=== PATIENT | male | born 1965 ===

== ENCOUNTER 2025-01-10 15:15 | Outpatient (AMB) | payer OTHER, SELFPAY ==
--- NOTE | 2025-01-10 15:20 | MHC.OFFVIS ---
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 He was referred by PCP for pulmonary evaluation for more notable dyspnea over the last 1-1.5 years. He does note significant weight gain over the last few years likely related to decreased activity. He also noted since starting antianxiety medication his dyspnea is less frequent. He has been maintained on albuterol MDI which he uses intermittently with good effect for dyspnea, wheezing and dry cough. He denies prior history of asthma. Denies history of recurrent respiratory infections. He has worked in a [employer] x 35 years with wood exposures. He endorses seasonal allergies, no recent allergy testing and would like to defer at this time. Cats at home. He denies any pertinent family history. [facility] Social History (Updated 01/10/25 @ 15:33 by Rayna Cuellar LPN) Patient Tobacco Use Status: Former Tobacco user Tobacco use type: Cigarette Cigarette Packs Per Day: 1.5 Years Smoked: 30 e-Cigarette/Vaping Use: Currently Using Review of Systems Const Denies chills, Denies excessive sweating, Denies fever(s), Denies headache(s) and Denies night sweats Eyes Denies dry eyes, Denies irritation and Denies itchy eyes ENT Reports Normal hearing present, Denies headache(s), Denies nasal congestion, Denies nasal discharge, Denies post nasal drip and Denies sore throat Card Denies chest pain, Denies chest pain at rest, Denies chest pain with activity, Denies claudication, Denies leg edema, Denies orthopnea and Denies paroxysmal nocturnal dyspnea Resp Denies chest congestion, Denies excessive phlegm production, Denies pain on inspiration, Denies pain with cough and Denies stridor Musc Denies myalgias Neuro Reports Normal hearing present and Denies headache(s) Endo Denies excessive sweating Jonny/Lymph Denies lymphadenopathy Aller/Immun Denies itchy eyes Physical Exam Vital Signs: Last Vital Signs Pulse 95 01/10/25 15:24 BP 136/78 01/10/25 15:24 Pulse Ox 97 01/10/25 15:24 Oxygen Delivery Method Room Air 01/10/25 15:24 Const General: cooperative, healthy appearing, comfortable, no acute distress, well developed and alert Nutritional Appearance: obese Orientation/consciousness: patient oriented x3 Limitations: no limitations HEENT Head: Yes normal to inspection, Yes normocephalic and Yes atraumatic Ears: hearing grossly normal bilaterally and external ears normal Eyes General: appearance normal, both eyes and all related structures Eyelids: Yes eyelids normal Sclerae: sclerae normal EOM: EOMs intact bilaterally Neck Neck: Yes normal visual inspection and Yes no lymphadenopathy Lymphatic: no lymphadenopathy noted Chest Chest palpation & inspection: normal inspection of the chest Resp Effort & Inspection: normal respiratory effort, able to speak in complete sentences, no audible wheezes, no cough, no stridor, not tachypneic, no tripod positioning and no use of accessory muscles Auscultation: clear to auscultation bilaterally Cardio Jugular venous distension: no JVD Rate: regular rate Rhythm: regular rhythm Skin Other: warm, dry General skin exam: no rashes or lesions noted Neuro General: patient oriented x3 Cranial nerves: Yes Normal hearing present Cognition (Neuro): normal cognition Gait exam (Neuro): Normal gait present Extrem General: Yes normal to inspection, Yes capillary refill normal, Yes no clubbing, cyanosis or edema and Yes no pedal edema Psych Appearance: grossly normal and well kempt Speech and movement: Normal speech and movement present and Clear speech present Affect: normal affect Attitude: cooperative Thought process: Normal thought process present Thought content: Normal thought content present Insight: Good insight present (Psych) Judgement: Good judgement present (Psych) Assessment & Plan Assessment & Plan (1) COPD (chronic obstructive pulmonary disease): Code(s): J44.9 - Chronic obstructive pulmonary disease, unspecified Category: Medical (2) Personal history of tobacco use: Code(s): Z87.891 - Personal history of nicotine dependence Category: Social Hx Plan Patrick presents for pulmonary evaluation for known history of COPD, unknown severity. Will send for PFT to further assess. Endorses seasonal allergies however would like to hold off on allergy testing at this time. Encouraged patient to continue to use albuterol MDI p.r.n.. Offered ICS/LABA, patient would like to wait until PFT performed. Will also send for chest CT given smoking history. All questions were answered and patient is going to plan. Will follow-up to review results or sooner if needed. Orders: Orders CT chest wo IV con Today Z87.891 - Personal history of nicotine dependence PFT pulmonary function test Today J44.9 - Chronic obstructive pulmonary disease, unspecified Coding Level of Care Code New Pt Level 4 (25016) Diagnoses COPD (chronic obstructive pulmonary disease) J44.9 Personal history of tobacco use Z87.895
[2025-01-10 15:24] VITALS: BP 136/78; PULSE 95; O2SAT 97
--- OUTSIDE RECORDS SUMMARY | 2025-01-10 16:17 | XMS_ITS ---
Author Organization [employer] [facility] Address [address] [place] [address] Care Team Providers Care Student Recruiter Name Role Phone MONTEZ NORAH Primary Care Provider [phone] Francisca Glass Unavailable [phone] Allergies No Known Allergies Reason For Referral Reason COPD management pl ease evaluate and treat Diagnosis 1 Chronic obstructive pulmonary disease, unspecified COPD type (J44.9) Referral Organization [employer] [facility] Referring Provider First Name Francisca Referring Provider Last Name Maria Luisa Referred Provider Specialty Pulmonology General Notes Referral was faxed [facility] Pulmonary Referral Priority Routine REASON FOR VISIT 1 wk b/p check Medications Medication SIG (Take, Route, Frequency, Duration) Notes Start Date End Date Status Mounjaro 2.5 MG/0.5ML as directed Subcut aneous weekly for 30 days 11/15/2024 Active Sertraline HCl 50 MG 1 tablet Orally Onc e a day for 30 days 11/13/2024 Active Atorvastatin Calcium 10 MG 1 tablet Orally Once a day for 30 days 11/15/2024 Active Albuterol Sulfate HFA 108 (90 Base) MCG/ACT 2 puff as needed Inhalation every 4 hrs for 30 days 09/22/2022 Active Sertraline HCl 25 MG TAKE 1 TABLET BY MO UT EVERY DAY for 30 Not-Taking Ventolin HFA 108 (90 Base) MCG/ACT 2 puffs Inhalation every 4 hours as needed for 30 days 07/27/2022 Active [facility] Fluticasone Propionate 50 MCG/ACT USE 1 SPRAY IN EACH NOSTRIL EVERY DAY for 30 Active metFORMIN HCl 500 MG 1 tablet with a irais l Orally twice a day for 30 days 11/15/2024 Active Lisinopril-hydroCHLOROth iazide 20-25 MG TAKE 1 TABLET BY MOUTH EVERY DAY FOR 90 DAYS for 90 days Active hydrOXYzine HCl 25 MG 1 tab daily Orally Once a day for 30 days As needed Active Vital Signs Temperature 97.2 degrees Fahrenheit 11/16/19 25 Oximetry 97 % 11/15/2024 Heart Rate 83 /min 11/15/2024 Blood pressure systolic 120 mm Hg 11/16/19 25 Blood pressure diastolic 72 mm Hg 025 Weight 242.9 lbs 11/15/2024 BMI 35.25 kg/m2 11/15/2024 Height 69.6 in 11/15/2024 Encounters Encounter Location Date Provider Diagnosis [facility] [address] [place] [address] 11/15/2024 Francisca Glass Essential (primary) hypertension I10 ; Hyperlipidemia, unspecified E78.5 ; Diabetes mellitus without complication E11.9 and Chronic obstructive pulmonary disease, unspecified COPD type J44.9 Assessments Encounter Date Diagnosis (ICD Code) Assessment Notes Treatment Notes Treatment Clinical Notes Section Notes 11/15/2024 Essential (primary) hypertension (ICD-10 - I10) Mr. Pratt is a 58-year-old gentleman with hypertension and anxiety disorder, obesity, ascending aortic aneurysm 4 cm, impaired fasting blood glucose, Is here today for a blood pressure check. Plan as follows Hypertension - Blood pressure is within normal limits. Recent comp showed normal kidney and liver function. Continue the same regimen Small microalbumin are noted, Though he is on the right medications Hyperlipidemia - Abnormal lipid panel. Given new diagnosis of diabetes and have started patient on atorvastatin 10 mg. Possible side effects have been discussed with benefits of this medication. Will check lipid panel in 4-6 weeks Type 2 diabetes - A1c of 6.5 fasting blood glucose of 116. I have started patient on metformin 500 mg twice daily. Touch base with opthalm. Foot care has been discussed. Given metabolic syndrome hypertension, hyperlipidemia, type 2 diabetes, morbid obesity patient will benefit from a GLP-1. I have discussed Mounjaro, side effects have been discussed with benefits. I have sent her a prescription. If he gets approved then will start weight management at the 4 weeks until he reaches goal. As for now discussed dietary modification with exercising COPD - Stable at this point. He uses albuterol as needed. Referred patient to clip on sunglasses inspector to establish care Anxiety - He just finished the sertraline 25 mg and he will be starting on a new dosage. Start sertraline 50 mg and take hydroxyzine as needed Screening blood work before next appointment General concerns have been discussed I have rendered the services for this patient under direct supervision of Dr. Herrmann, who did not see the patient but was available upon request 11/15/2024 Hyperlipidemia, unspecified (ICD-10 - E78.5) Mr. Pratt is a 58-year-old gentleman with hypertension and anxiety disorder, obesity, ascending aortic aneurysm 4 cm, impaired fasting blood glucose, Is here today for a blood pressure check. Plan as follows Hypertension - Blood pressure is within normal limits. Recent comp showed normal kidney and liver function. Continue the same regimen Small microalbumin are noted, Though he is on the right medications Hyperlipidemia - Abnormal lipid panel. Given new diagnosis of diabetes and have started patient on atorvastatin 10 mg. Possible side effects have been discussed with benefits of this medication. Will check lipid panel in 4-6 weeks Type 2 diabetes - A1c of 6.5 fasting blood glucose of 116. I have started patient on metformin 500 mg twice daily. Touch base with opthalm. Foot care has been discussed. Given metabolic syndrome hypertension, hyperlipidemia, type 2 diabetes, morbid obesity patient will benefit from a GLP-1. I have discussed Mounjaro, side effects have been discussed with benefits. I have sent her a prescription. If he gets approved then will start weight management at the 4 weeks until he reaches goal. As for now discussed dietary modification with exercising COPD - Stable at this point. He uses albuterol as needed. Referred patient to clip on sunglasses inspector to establish care Anxiety - He just finished the sertraline 25 mg and he will be starting on a new dosage. Start sertraline 50 mg and take hydroxyzine as needed Screening blood work before next appointment General concerns have been discussed I have rendered the services for this patient under direct supervision of Dr. Herrmann, who did not see the patient but was available upon request 11/15/2024 Diabetes mellitus without complication (ICD-10 - E11.9) Mr. Pratt is a 58-year-old gentleman with hypertension and anxiety disorder, obesity, ascending aortic aneurysm 4 cm, impaired fasting blood glucose, Is here today for a blood pressure check. Plan as follows Hypertension - Blood pressure is within normal limits. Recent comp showed normal kidney and liver function. Continue the same regimen Small microalbumin are noted, Though he is on the right medications Hyperlipidemia - Abnormal lipid panel. Given new diagnosis of diabetes and have started patient on atorvastatin 10 mg. Possible side effects have been discussed with benefits of this medication. Will check lipid panel in 4-6 weeks Type 2 diabetes - A1c of 6.5 fasting blood glucose of 116. I have started patient on metformin 500 mg twice daily. Touch base with opthalm. Foot care has been discussed. Given metabolic syndrome hypertension, hyperlipidemia, type 2 diabetes, morbid obesity patient will benefit from a GLP-1. I have discussed Mounjaro, side effects have been discussed with benefits. I have sent her a prescription. If he gets approved then will start weight management at the 4 weeks until he reaches goal. As for now discussed dietary modification with exercising COPD - Stable at this point. He uses albuterol as needed. Referred patient to clip on sunglasses inspector to establish care Anxiety - He just finished the sertraline 25 mg and he will be starting on a new dosage. Start sertraline 50 mg and take hydroxyzine as needed Screening blood work before next appointment General concerns have been discussed I have rendered the services for this patient under direct supervision of Dr. Herrmann, who did not see the patient but was available upon request 11/15/2024 Chronic obstructive pulmonary disease, unspecified COPD type (ICD-10 - J44.9) Mr. Pratt is a 58-year-old gentleman with hypertension and anxiety disorder, obesity, ascending aortic aneurysm 4 cm, impaired fasting blood glucose, Is here today for a blood pressure check. Plan as follows Hypertension - Blood pressure is within normal limits. Recent comp showed normal kidney and liver function. Continue the same regimen Small microalbumin are noted, Though he is on the right medications Hyperlipidemia - Abnormal lipid panel. Given new diagnosis of diabetes and have started patient on atorvastatin 10 mg. Possible side effects have been discussed with benefits of this medication. Will check lipid panel in 4-6 weeks Type 2 diabetes - A1c of 6.5 fasting blood glucose of 116. I have started patient on metformin 500 mg twice daily. Touch base with opthalm. Foot care has been discussed. Given metabolic syndrome hypertension, hyperlipidemia, type 2 diabetes, morbid obesity patient will benefit from a GLP-1. I have discussed Mounjaro, side effects have been discussed with benefits. I have sent her a prescription. If he gets approved then will start weight management at the 4 weeks until he reaches goal. As for now discussed dietary modification with exercising COPD - Stable at this point. He uses albuterol as needed. Referred patient to clip on sunglasses inspector to establish care Anxiety - He just finished the sertraline 25 mg and he will be starting on a new dosage. Start sertraline 50 mg and take hydroxyzine as needed Screening blood work before next appointment General concerns have been discussed I have rendered the services for this patient under direct supervision of Dr. Herrmann, who did not see the patient but was available upon request Plan Of Treatment Medication Medication Name Sig Start Date Stop Date Notes Mounjaro 2.5 MG/0.5ML as directed Subcut aneous weekly for 30 days 11/15/2024 Atorvastatin Calcium 10 MG 1 tablet Oral ly Once a day for 30 days 11/15/2024 Albuterol Sulfate HFA 108 (9 0 Base) MCG/ACT 2 puff as needed Inhalation every 4 hrs for 30 days 09/22/2022 metFORMIN HCl 500 MG 1 tablet with a irais l Orally twice a day for 30 days 11/15/2024 Pending Test Test Name Order Date Lipid Panel-[id number] 11/15/2024 Future Test Test Name Order Date Hemoglobin [id number] 11/15/2024 Comp. Metabolic Panel [id number] 2024 Referrals Referral Date Details 11/15/2024 11/15/2024, COPD man agement please evaluate and treat Next Appt Details Follow Up: 3 Months- f/Sada avila: Provider Name:Francisca tenorio, 02/15/2025 03:30:00 PM, [address] [place] [address], [id number], Progress Notes * Patrick PRATTDOB: [birth year] (58 yo M)Acc No.[id number]:11/15/2024 Progress Notes Patient:?Patrick PRATT Provider:?Francisca Glass :1965???Age:58 Y???Sex:Male Darrius e:11/15/2024 Address:[address] [place] [address], [phone] Pcp:NORAH HERRMANN Subjective: * Chief Complaints: * ???1 wk b/p check * HPI: ???Internal Medicine:?Mr. Pratt is a 58-year-old gentleman with hypertension and anxiety disorder, obesity, ascending aortic aneurysm 4 cm, impaired fasting blood glucose, Is here today for a blood pressure check. During previous visit his blood pressure was elevated as he has been out of refills. He has been compliant with his medications.? He has lost 8 pounds since the last visit.? His recent blood work they came back abnormal with an A1c of 6.5, he states that he always has been borderline prediabetic.? His lipid panel is also elevated.? He mentions that he is looking to lose weight as well.? His mood is stable on sertraline 50 mg and he takes hydroxyzine as needed.? He states that he has history of COPD which she takes albuterol as needed and is looking to establish care with a clip on sunglasses inspector.? He denies any other active issues. * ROS:?General/Constitutional:?Denies?Fatigue.?Denies?Fever.?Denies?Lightheadedness.?Denies?Weight loss.?Neurologic:?Denies?Dizziness.?Denies?Headache.?Denies?Memory loss.?Ophthalmologic:?Denies?Diminished visual acuity.?Denies?Eye problems.?ENT:?Nasal Congestion?Denies.?Denies?Difficulty swallowing.?Denies?Snoring.?Cardiovascular:?Denies?Chest pain at rest.?Denies?Chest pain with exertion.?Denies?Difficulty laying flat.?Denies?Fluid accumulation in the legs.?Denies?Palpitations.?Respiratory:?Denies?Cough.?Denies?Shortness of breath at rest.?Denies?Wheezing.?Gastrointestinal:?Denies?Abdominal pain.?Denies?Blood in stool.?Denies?Change in bowel habits.?Musculoskeletal:?myalgias?Denies.?Joint Swelling?Denies.?Endocrine:?Denies?Excessive thirst.?Denies?Frequent urination.?Psychiatric:?Admits?Anxiety.?Denies?Depressed mood.?Denies?Difficulty sleeping.?Denies?Eating disorder.? * Medical History:? * Surgical History:? * Hospitalization/Major Diagno stic Procedure:? * Medications:?TakingLisinopri l-hydroCHLOROthiazide 20-25 MG Tablet TAKE 1 TABLET BY MOUTH EVERY DAY FOR 90 DAYS hydrOXYzine HCl 25 MG Tablet 1 tab daily Orally Once a day As neededVentolin HFA 108 (90 Base) MCG/ACT Aerosol Solution 2 puffs Inhalation every 4 hours as needed Albuterol Sulfate HFA 108 (90 Base) MCG/ACT Aerosol Solution 2 puff as needed Inhalation every 4 hrs [facility] Fluticasone Propionate 50 MCG/ACT Suspension USE 1 SPRAY IN EACH NOSTRIL EVERY DAY Sertraline HCl 50 MG Tablet 1 tablet Orally Once a day Taking Lisinopril-hydroCHLOROthiazide 20-25 MG Tablet TAKE 1 TABLET BY MOUTH EVERY DAY FOR 90 DAYS Taking hydrOXYzine HCl 25 MG Tablet 1 tab daily Orally Once a day As neededTaking Ventolin HFA 108 (90 Base) MCG/ACT Aerosol Solution 2 puffs Inhalation every 4 hours as needed Taking Albuterol Sulfate HFA 108 (90 Base) MCG/ACT Aerosol Solution 2 puff as needed Inhalation every 4 hrs Taking [facility] Fluticasone Propionate 50 MCG/ACT Suspension USE 1 SPRAY IN EACH NOSTRIL EVERY DAY Taking Sertraline HCl 50 MG Tablet 1 tablet Orally Once a day Not- TakingSertraline HCl 25 MG Tablet TAKE 1 TABLET BY MOUTH EVERY DAY Not-Taking Sertraline HCl 25 MG Tablet TAKE 1 TABLET BY MOUTH EVERY DAY * Allergies:?N.K.D.A.no[Allerg ies Verified] Objective: * Vitals:?Temp:97.2F, Oxygen s at %:97%, HR:83/min, BP:120/72mm Hg, Wt:242.9lbs, BMI:35.25Index, Ht: 69.6 in. * Examination: ???general exam: ?GENERAL APPEARANCE:?alert, well hydrated, well nourished, in no distress.?HEAD:?normocephalic , atraumatic.?EYES:?pupils equal, round, reactive to light and accommodation , extraocular movement intact (EOMI).?EARS:?hearing intact.?NOSE:?nares patent, no swelling of turbinates, no congestion.?NECK/THYROID:?normal , no thyromegaly, no palpable nodules, trachea midline, no carotid bruit , no cervical lymphadenopathy??.?SKIN:?good turgor , no rashes , no suspicious lesions on exposed skin surfaces.?HEART:?S1, S2 , regular rate and rhythm, no murmurs, rubs, gallops, no jugular venous distention.?LUNGS:?clear to auscultation bilaterally , no wheezes, rales, rhonchi.?CHEST:?normal shape and expansion, , normal anteroposterior (AP) diameter.?MUSCULOSKELETAL:?no physical limitations, gait normal.?EXTREMITIES:?no edema.?NEUROLOGIC:?cognitive exam grossly normal , alert and oriented , nonfocal.?Psychiatry?normal affect, engaged in conversation, good eye contact.? Assessment: * Assessment: 1.?Essential (primary) hyper tension - I10 (Primary)???2.?Hyperlipidemia, unspecified - E78.5???3.?Diabetes mellitus without complication - E11.9???4.?Chronic obstructive pulmonary disease, unspecified COPD type - J44.9??? Mr. Pratt is a 58-year-old gentleman with hypertension and anxiety disorder, obesity, ascending aortic aneurysm 4 cm, impaired fasting blood glucose, Is here today for a blood pressure check. Plan as follows Hypertension - Blood pressure is within normal limits. Recent comp showed normal kidney and liver function. Continue the same regimen Small microalbumin are noted, Though he is on the right medications Hyperlipidemia - Abnormal lipid panel. Given new diagnosis of diabetes and have started patient on atorvastatin 10 mg. Possible side effects have been discussed with benefits of this medication. Will check lipid panel in 4-6 weeks Type 2 diabetes - A1c of 6.5 fasting blood glucose of 116. I have started patient on metformin 500 mg twice daily. Touch base with opthalm. Foot care has been discussed. Given metabolic syndrome hypertension, hyperlipidemia, type 2 diabetes, morbid obesity patient will benefit from a GLP-1. I have discussed Mounjaro, side effects have been discussed with benefits. I have sent her a prescription. If he gets approved then will start weight management at the 4 weeks until he reaches goal. As for now discussed dietary modification with exercising COPD - Stable at this point. He uses albuterol as needed. Referred patient to clip on sunglasses inspector to establish care Anxiety - He just finished the sertraline 25 mg and he will be starting on a new dosage. Start sertraline 50 mg and take hydroxyzine as needed Screening blood work before next appointment General concerns have been discussed I have rendered the services for this patient under direct supervision of Dr. Herrmann, who did not see the patient but was available upon request Plan: * Treatment: 2.?Diabetes mellitus without complication? Start Mounjaro Solution Auto-injector, 2.5 MG/0.5ML, as directed, Subcutaneous, weekly, 30 days, 4, Refills 1;?Start metFORMIN HCl Tablet, 500 MG, 1 tablet with a meal, Orally, twice a day, 30 days, 60 Tablet, Refills 3.?LAB: Comp. Metabolic Panel [id number] (Ordered for 11/15/2024) ?LAB: Hemoglobin [id number] (Ordered for 11/15/2024) 3.?Chronic obstructive pulmo nary disease, unspecified COPD type? Referral To:Pulmonology ?Reason:COPD management please evaluate and treat 4.?Others? Refill Albuterol Sulfate HFA Aerosol Solution, 108 (90 Base) MCG/ACT, 2 puff as needed, Inhalation, every 4 hrs, 30 days, 1, Refills 3.?? * Procedure Codes:?3078F DIAST BP < 80 MM [id number] SYST BP LT 130 MM HG * Follow Up:?3 Months- f/up * * Sign off status: Completed true * Provider:?Francisca Glass Date:?11/16/19 25 Generated for Noah mitchell/Gris/Isa on:?01/10/2025 04:16 PM EDT History and Physical Notes * HPI (History of Present Illness) Category Sub-Category Detail Notes Category Not es Internal Medicine Mr. Iona chappell is a 58-year-old gentleman with hypertension and anxiety disorder, obesity, ascending aortic aneurysm 4 cm, impaired fasting blood glucose, Is here today for a blood pressure check. During previous visit his blood pressure was elevated as he has been out of refills. He has been compliant with his medications. He has lost 8 pounds since the last visit. His recent blood work they came back abnormal with an A1c of 6.5, he states that he always has been borderline prediabetic. His lipid panel is also elevated. He mentions that he is looking to lose weight as well. His mood is stable on sertraline 50 mg and he takes hydroxyzine as needed. He states that he has history of COPD which she takes albuterol as needed and is looking to establish care with a clip on sunglasses inspector. He denies any other active issues. Examination Category Sub-Category Detail Notes Category Not es general exam GENERAL APPEARANCE: alert, well hydrated, well nourished, in no distress HEAD: normocephalic , atra umatic EYES: pupils equal, round, reactive to light and accommodation , extraocular movement intact (EOMI) EARS: hearing intact NOSE: nares patent, no swe lling of turbinates, no congestion NECK/THYROID: normal , no thyromeg jacqueline, no palpable nodules, trachea midline, no carotid bruit , no cervical lymphadenopathy HEART: S1, S2 , regular rat e and rhythm, no murmurs, rubs, gallops, no jugular venous distention CHEST: normal shape and exp ansion, , normal anteroposterior (AP) diameter LUNGS: clear to auscultatio n bilaterally , no wheezes, rales, rhonchi ABDOMEN: NEUROLOGIC: cognitive exam gross ly normal , alert and oriented , nonfocal SKIN: good turgor , no marcelo hes , no suspicious lesions on exposed skin surfaces EXTREMITIES: no edema MUSCULOSKELETAL: no physical limitati ons, gait normal LYMPH NODES: Psychiatry normal affect, engag ed in conversation, good eye contact Consultation Request Notes Referral Date Referring Provider Referred Provider Not es 11/15/2024 Francisca Glass , COPD manage ment please evaluate and treat
--- OUTSIDE RECORDS SUMMARY | 2025-01-10 16:17 | XMS_ITS | Patient Health Record ---
Author Organization [facility] Address [address] [facility] [address] [place] [address] Care Team Providers Care Electro Tech Name Role Phone NORAH HERRMANN Primary Care Provider Christos Dukes Unavailable [phone] Francisca Glass Unavailable [phone] Allergies No Known Allergies Results Component Value Reference Range Notes PSA (Serial Monitor)-[id number] Reviewed date:11/21/2024 07:33:39 AM Interpretation: Performing Lab:[facility], [address] [facility], Phone - [phone], Director - MDSuhaily Notes/Report: Prostate Specific Ag 1.0 0.0-4.0 ng/mL Agnieszka ECLIA methodology. . According to the [employer] [employer], Serum PSA should decrease and remain at undetectable levels after radical prostatectomy. The AUA defines biochemical recurrence as an initial PSA value 0.2 ng/mL or greater followed by a subsequent confirmatory PSA value 0.2 ng/mL or greater. Values obtained with different assay methods or kits cannot be used interchangeably. Results cannot be interpreted as absolute evidence of the presence or absence of malignant disease. Comp. Metabolic Panel [id number] Reviewed date:11/15/2024 03:39:32 PM Interpretation: Performing Lab:[facility], [address], [place], Phone - [phone], Director - MDJodry Notes/Report: Glucose 116 70-99 mg/dL BUN 19 6-24 mg/dL Creatinine 1.52 0.76-1.27 mg/dL eGFR 53 >59 mL/min/1.73 BUN/Creatinine Ratio 13 9-20 Sodium 137 134-144 mmol/L Potassium 5.0 3.5-5.2 mmol/L Chloride 99 96-106 mmol/L Carbon Dioxide, Total 24 20-29 mmol/L Calcium 9.6 8.7-10.2 mg/dL Protein, Total 7.1 6.0-8.5 g/dL Albumin 4.3 3.8-4.9 g/dL Globulin, Total 2.8 1.5-4.5 g/dL Bilirubin, Total 0.5 0.0-1.2 mg/dL Alkaline Phosphatase 69 44-121 IU/L AST (SGOT) 31 0-40 IU/L Lipid Panel With LDL/HDL Rat [id number] Reviewed date:11/15/2024 03:39:18 PM Interpretation: Performing Lab:[facility], [address] [place] [address], Phone - [phone], Director - Remington Notes/Report: Cholesterol, Total 216 100-199 mg/dL Triglycerides 95 0-149 mg/dL HDL Cholesterol 53 >39 mg/dL VLDL Cholesterol Shravan 17 5-40 mg/dL LDL Chol Calc (NIH) 146 0-99 mg/dL LDL/HDL Ratio 2.8 0.0-3.6 ratio LDL/HDL Ratio Men Women 1/2 Avg.Risk 1.0 1.5 Avg.Risk 3.6 3.2 2X Avg.Risk 6.2 5.0 3X Avg.Risk 8.0 6.1 Albumin/Creatinine Ratio,Uri [id number] Reviewed date:11/15/2024 03:39:01 PM Interpretation: Performing Lab:[facility], [address] [place] [address], [place], Phone - [phone], Director - Remington Notes/Report: Creatinine, Urine 95.8 Not Estab. mg/dL Albumin, Urine 42.7 Not Estab. ug/mL Alb/Creat Ratio 45 0-29 mg/g creat Normal: 0 - 29 Moderately increased: 30 - 300 Severely increased: >300 CBC with Diff, Platelet, NLR -[id number] Reviewed date:11/15/2024 03:38:45 PM Interpretation: Performing Lab:[facility], [address] [place] [address], [place], Phone - [phone], Director - Remington Notes/Report: WBC 6.1 3.4-10.8 x10E3/uL RBC 4.74 4.14-5.80 x10E6/uL Hemoglobin 14.5 13.0-17.7 g/dL Hematocrit 43.2 37.5-51.0 % MCV 91 79-97 fL MCH 30.6 26.6-33.0 pg MCHC 33.6 31.5-35.7 g/dL RDW 12.5 11.6-15.4 % Platelets 285 150-450 x10E3/uL Neutrophils 61 Not Estab. % Lymphs 26 Not Estab. % Monocytes 9 Not Estab. % Eos 2 Not Estab. % Basos 2 Not Estab. % Neutrophils (Absolute) 3.8 1.4-7.0 x10E3/uL Lymphs (Absolute) 1.6 0.7-3.1 x10E3/uL Neut/Lymph Ratio 2.4 0.0-2.9 ratio Published COVID-19 studies suggest: Low likelihood of severe COVID-19 disease progression 0.0-2.9 High likelihood of severe COVID-19 disease progression >4.9 Monocytes(Absolute) 0.5 0.1-0.9 x10E3/uL Eos (Absolute) 0.1 0.0-0.4 x10E3/uL Baso (Absolute) 0.1 0.0-0.2 x10E3/uL Immature Granulocytes 0 Not Estab. % Immature Grans (Abs) 0.0 0.0-0.1 x10E3/uL Hemoglobin [id number] Reviewed date:11/15/2024 03:38:33 PM Interpretation: Performing Lab:[facility], [address] [place] [address], [place], Phone - [phone], Director - Remington Notes/Report: Hemoglobin A1c 6.5 4.8-5.6 % . Prediabetes: 5.7 - 6.4 Diabetes: >6.4 Glycemic control for adults with diabetes: <7.0 Reason For Referral Reason COPD management pl ease evaluate and treat Diagnosis 1 Chronic obstructive pulmonary disease, unspecified COPD type (J44.9) Referral Organization [facility] Referring Provider First Name Francisca Referring Provider Last Name Maria Luisa Referred Provider Specialty Pulmonology General Notes Referral was faxed [facility] Pulmonary Referral Priority Routine Medications Medication SIG (Take, Route, Frequency, Duration) Notes Start Date End Date Status Mounjaro 2.5 MG/0.5ML as directed Subcut aneous weekly for 30 days 11/15/2024 Active Sertraline HCl 50 MG 1 tablet Orally Onc e a day for 30 days 11/13/2024 Active Albuterol Sulfate HFA 108 (90 Base) MCG/ACT 2 puff as needed Inhalation every 4 hrs for 30 days 09/22/2022 Active Atorvastatin Calcium 10 MG TAKE 1 TABLET BY MOUTH EVERY DAY FOR 30 DAYS for 90 Active Ventolin HFA 108 (90 Base) MCG/ACT 2 puffs Inhalation every 4 hours as needed for 30 days 07/27/2022 Active [facility] Fluticasone Propionate 50 MCG/ACT USE 1 SPRAY IN EACH NOSTRIL EVERY DAY for 30 Active metFORMIN HCl 500 MG 1 tablet with a irais l Orally twice a day for 30 days 11/15/2024 Active Sertraline HCl 25 MG TAKE 1 TABLET BY [facility] EVERY DAY for 30 Not-Taking Lisinopril-hydroCHLOROth iazide 20-25 MG TAKE 1 TABLET BY MOUTH EVERY DAY FOR 90 DAYS for 90 days Active hydrOXYzine HCl 25 MG 1 tab daily Orally Once a day for 30 days As needed Active Immunizations Vaccine Route Administration Date Status Comme nts COVID Moderna Unknown 10/04/2020 Administered COVID Moderna Unknown 10/31/2020 Administered COVID Moderna Unknown 07/31/2021 Administered Fluzone QD Unknown 06/12/2022 Administered Shingrix Unknown 06/12/2022 Administered Social History Tobacco Use: Social History Observation Description Date Details (start date - stop date) Current Smoker NA - NA Tobacco Use/Smoking Question Answer Notes Are you a current smoker How often do you smoke cigarettes? every day How many cigarettes a day do you smoke? 6-10 Alcohol Screen (Audit-C) Question Answer Notes Did you have a drink containing alcohol in the p ast year? No Points 0 Interpretation Negative Problems Problem Type SNOMED Code ICD Code Onset Dates Problem Status W/U Status Risk Notes Problem Hyperlipidemia (55735256) Hyperlipidemia, unspecified (E78.5) Active confirmed Problem Tobacco user (578306620) Nicotine dependence, cigarettes, uncomplicated (F17.210) Active confirmed Problem Generalized anxiety disorder (89745772) Generalized anxiety disorder (F41.1) Active confirmed Problem Essential hypertension (37286306) Essential (primary) hypertension (I10) Active confirmed Problem Aortic aneurysm (14092188) Aneurysm of aorta in diseases classified elsewhere (I79.0) Active confirmed Problem Sebaceous cyst (446204565) Sebaceous cyst (L72.3) Active confirmed Problem Erectile dysfunction (disorder) (590646862) Male erectile dysfunction, unspecified (N52.9) Active confirmed Problem Benign prostatic hypertrophy without outflow obstruction (759679002) Benign prostatic hyperplasia without lower urinary tract symptoms (N40.0) Active confirmed Problem Essential hypertension (44826773) HTN (hypertension), benign (I10) Active confirmed Problem COPD - Chronic obstructive pulmonary disease (46247492) Chronic obstructive pulmonary disease, unspecified COPD type (J44.9) Active confirmed Problem Male hypogonadism (50181145) Hypogonadism in male (E29.1) Active confirmed Vital Signs Heart Rate 83 /min 11/15/2024 Temperature 97.2 degrees Fahrenheit 11/15/2024 Blood pressure diastolic 72 mm Hg 11/15/2024 Oximetry 97 % 11/15/2024 Height 69.6 in 11/15/2024 Blood pressure systolic 120 mm Hg 11/15/2024 Weight 242.9 lbs 11/15/2024 BMI 35.25 kg/m2 11/15/2024 Encounters Encounter Location Date Provider Diagnosis [address] [address] 11/07/2024 [place] [facility] Essential (primary) hypertension I10 ; Annual physical exam Z00.00 ; Nicotine dependence, cigarettes, uncomplicated F17.210 ; Sebaceous cyst L72.3 ; Male erectile dysfunction, unspecified N52.9 ; Hypogonadism in male E29.1 ; Aneurysm of aorta in diseases classified elsewhere I79.0 ; Chronic obstructive pulmonary disease, unspecified COPD type J44.9 ; Generalized anxiety disorder F41.1 ; Hyperlipidemia, unspecified E78.5 ; HTN (hypertension), benign I10 and Benign prostatic hyperplasia without lower urinary tract symptoms N40.[address] [address] 11/15/2024 Francisca Glass Essential (primary) hypertension I10 ; Hyperlipidemia, unspecified E78.5 ; Diabetes mellitus without complication E11.9 and Chronic obstructive pulmonary disease, unspecified COPD type J44.[address] [address] 01/05/2025 Francisca Glass [facility] [address] [facility] [address] [place] [address] 09/11/2024 [facility] [address] [address] [place] [address] 09/11/[address] [place] [address] 10/31/[address] [place] [address] 11/13/2024 [facility] Essential (primary) hypertension I10 [address] [place] [address] 12/27/2024 [facility] Assessments Encounter Date Diagnosis (ICD Code) Assessment Notes Treatment Notes Treatment Clinical Notes Section Notes 11/07/2024 Essential (primary) hypertension (ICD-10 - I10) 52-year-old obese gentleman with history of hypertension, hyperlipidemia, impaired fasting glucose, aortic aneurysm is here today for complete physical exam. Plan as following Hypertension uncontrolled due to noncompliance with medication and ran out of lisinopril and hydrochlorothiazide has not taken it for 3 weeks. He also has not done any lab work in the last 2 years. Discussed with patient about compliance with medication and regular follow-ups. blood pressure is 150/95. We have given him a refill for lisinopril and hydrochlorthiazide will follow up in 1 week and make sure he does not need further adjustment in his medication lab slip given for compressive metabolic panel and albumin creatinine ratio. Discussed with patient about cutting down on sodium intake and exercising and weight loss. EKG was completed today reviewed by me shows normal sinus rhythm with no acute ST changes QTC is 406 heart rate is 79 bpm, no bundle branch block Hyperlipidemia we will check a lipid profile. Dietary restriction was advised. possible undiagnosed sleep apnea, patient reports snoring at night. Will need a sleep study we will address this on her next visit Aortic aneurysm will need screening, follow-up, will order an echocardiogram to assess for LV function and aortic aneurysm sizing, he may need a CT chest and abdomen. Uncontrolled hypertension, discussed with patient about the effects of elevated blood pressure on aortic aneurysm. impaired fasting glucose last A1c 2 years ago was 6.0 we will check HbA1c Prostate screening will check a PSA Anxiety and depression PHQ 9 is 5 he sleeps well no acute issues, he takes Zoloft 50 mg and sertraline 25 mg daily he uses hydroxyzine 25 mg daily as needed not sure why he is taking the same medication from different brands but according to the patient he was given by his last PCP Obesity class I discussed about weight loss, dietary restriction, daily exercise, we will recheck in 3 months for further evaluation he may benefit from [facility] 11/07/2024 Annual physical exam (ICD-10 - Z00.00) 52-year-old obese gentleman with history of hypertension, hyperlipidemia, impaired fasting glucose, aortic aneurysm is here today for complete physical exam. Plan as following Hypertension uncontrolled due to noncompliance with medication and ran out of lisinopril and hydrochlorothiazide has not taken it for 3 weeks. He also has not done any lab work in the last 2 years. Discussed with patient about compliance with medication and regular follow-ups. blood pressure is 150/95. We have given him a refill for lisinopril and hydrochlorthiazide will follow up in 1 week and make sure he does not need further adjustment in his medication lab slip given for compressive metabolic panel and albumin creatinine ratio. Discussed with patient about cutting down on sodium intake and exercising and weight loss. EKG was completed today reviewed by me shows normal sinus rhythm with no acute ST changes QTC is 406 heart rate is 79 bpm, no bundle branch block Hyperlipidemia we will check a lipid profile. Dietary restriction was advised. possible undiagnosed sleep apnea, patient reports snoring at night. Will need a sleep study we will address this on her next visit Aortic aneurysm will need screening, follow-up, will order an echocardiogram to assess for LV function and aortic aneurysm sizing, he may need a CT chest and abdomen. Uncontrolled hypertension, discussed with patient about the effects of elevated blood pressure on aortic aneurysm. impaired fasting glucose last A1c 2 years ago was 6.0 we will check HbA1c Prostate screening will check a PSA Anxiety and depression PHQ 9 is 5 he sleeps well no acute issues, he takes Zoloft 50 mg and sertraline 25 mg daily he uses hydroxyzine 25 mg daily as needed not sure why he is taking the same medication from different brands but according to the patient he was given by his last PCP Obesity class I discussed about weight loss, dietary restriction, daily exercise, we will recheck in 3 months for further evaluation he may benefit from [facility] 11/13/2024 Essential (primary) hypertension (ICD-10 - I10) 11/15/2024 Hyperlipidemia, unspecified (ICD-10 - E78.5) Mr. Lechuga is a 58-year-old gentleman with hypertension and [...] uses albuterol as needed. Referred patient to director of security to establish care Anxiety - He just [...] patient but was available upon request 11/15/2024 Essential (primary) hypertension (ICD-10 - I10) Mr. Lechuga is a 58-year-old gentleman with hypertension and [...] uses albuterol as needed. Referred patient to director of security to establish care Anxiety - He just [...] mellitus without complication (ICD-10 - E11.9) Mr. Lechuga is a 58-year-old gentleman with hypertension and [...] uses albuterol as needed. Referred patient to director of security to establish care Anxiety - He just [...] the patient but was available upon request 11/07/2024 Nicotine dependence, cigarettes, uncomplicated (ICD-10 - F17.210) 52-year-old obese gentleman with history of hypertension, hyperlipidemia, impaired fasting glucose, aortic aneurysm is here today for complete physical exam. Plan as following Hypertension uncontrolled due to noncompliance with medication and ran out of lisinopril and hydrochlorothiazide has not taken it for 3 weeks. He also has not done any lab work in the last 2 years. Discussed with patient about compliance with medication and regular follow-ups. blood pressure is 150/95. We have given him a refill for lisinopril and hydrochlorthiazide will follow up in 1 week and make sure he does not need further adjustment in his medication lab slip given for compressive metabolic panel and albumin creatinine ratio. Discussed with patient about cutting down on sodium intake and exercising and weight loss. EKG was completed today reviewed by me shows normal sinus rhythm with no acute ST changes QTC is 406 heart rate is 79 bpm, no bundle branch block Hyperlipidemia we will check a lipid profile. Dietary restriction was advised. possible undiagnosed sleep apnea, patient reports snoring at night. Will need a sleep study we will address this on her next visit Aortic aneurysm will need screening, follow-up, will order an echocardiogram to assess for LV function and aortic aneurysm sizing, he may need a CT chest and abdomen. Uncontrolled hypertension, discussed with patient about the effects of elevated blood pressure on aortic aneurysm. impaired fasting glucose last A1c 2 years ago was 6.0 we will check HbA1c Prostate screening will check a PSA Anxiety and depression PHQ 9 is 5 he sleeps well no acute issues, he takes Zoloft 50 mg and sertraline 25 mg daily he uses hydroxyzine 25 mg daily as needed not sure why he is taking the same medication from different brands but according to the patient he was given by his last PCP Obesity class I discussed about weight loss, dietary restriction, daily exercise, we will recheck in 3 months for further evaluation he may benefit from [facility] 11/15/2024 Chronic obstructive pulmonary disease, unspecified COPD type (ICD-10 - J44.9) Mr. Lechuga is a 58-year-old gentleman with hypertension and [...] uses albuterol as needed. Referred patient to director of security to establish care Anxiety - He just [...] the patient but was available upon request 11/07/2024 Sebaceous cyst (ICD-10 - L72.3) 52-year-old obese gentleman with history of hypertension, hyperlipidemia, impaired fasting glucose, aortic aneurysm is here today for complete physical exam. Plan as following Hypertension uncontrolled due to noncompliance with medication and ran out of lisinopril and hydrochlorothiazide has not taken it for 3 weeks. He also has not done any lab work in the last 2 years. Discussed with patient about compliance with medication and regular follow-ups. blood pressure is 150/95. We have given him a refill for lisinopril and hydrochlorthiazide will follow up in 1 week and make sure he does not need further adjustment in his medication lab slip given for compressive metabolic panel and albumin creatinine ratio. Discussed with patient about cutting down on sodium intake and exercising and weight loss. EKG was completed today reviewed by me shows normal sinus rhythm with no acute ST changes QTC is 406 heart rate is 79 bpm, no bundle branch block Hyperlipidemia we will check a lipid profile. Dietary restriction was advised. possible undiagnosed sleep apnea, patient reports snoring at night. Will need a sleep study we will address this on her next visit Aortic aneurysm will need screening, follow-up, will order an echocardiogram to assess for LV function and aortic aneurysm sizing, he may need a CT chest and abdomen. Uncontrolled hypertension, discussed with patient about the effects of elevated blood pressure on aortic aneurysm. impaired fasting glucose last A1c 2 years ago was 6.0 we will check HbA1c Prostate screening will check a PSA Anxiety and depression PHQ 9 is 5 he sleeps well no acute issues, he takes Zoloft 50 mg and sertraline 25 mg daily he uses hydroxyzine 25 mg daily as needed not sure why he is taking the same medication from different brands but according to the patient he was given by his last PCP Obesity class I discussed about weight loss, dietary restriction, daily exercise, we will recheck in 3 months for further evaluation he may benefit from [facility] 11/07/2024 Male erectile dysfunction, unspecified (ICD-10 - N52.9) 52-year-old obese gentleman with history of hypertension, hyperlipidemia, impaired fasting glucose, aortic aneurysm is here today for complete physical exam. Plan as following Hypertension uncontrolled due to noncompliance with medication and ran out of lisinopril and hydrochlorothiazide has not taken it for 3 weeks. He also has not done any lab work in the last 2 years. Discussed with patient about compliance with medication and regular follow-ups. blood pressure is 150/95. We have given him a refill for lisinopril and hydrochlorthiazide will follow up in 1 week and make sure he does not need further adjustment in his medication lab slip given for compressive metabolic panel and albumin creatinine ratio. Discussed with patient about cutting down on sodium intake and exercising and weight loss. EKG was completed today reviewed by me shows normal sinus rhythm with no acute ST changes QTC is 406 heart rate is 79 bpm, no bundle branch block Hyperlipidemia we will check a lipid profile. Dietary restriction was advised. possible undiagnosed sleep apnea, patient reports snoring at night. Will need a sleep study we will address this on her next visit Aortic aneurysm will need screening, follow-up, will order an echocardiogram to assess for LV function and aortic aneurysm sizing, he may need a CT chest and abdomen. Uncontrolled hypertension, discussed with patient about the effects of elevated blood pressure on aortic aneurysm. impaired fasting glucose last A1c 2 years ago was 6.0 we will check HbA1c Prostate screening will check a PSA Anxiety and depression PHQ 9 is 5 he sleeps well no acute issues, he takes Zoloft 50 mg and sertraline 25 mg daily he uses hydroxyzine 25 mg daily as needed not sure why he is taking the same medication from different brands but according to the patient he was given by his last PCP Obesity class I discussed about weight loss, dietary restriction, daily exercise, we will recheck in 3 months for further evaluation he may benefit from [facility] 11/07/2024 Hypogonadism in male (ICD-10 - E29.1) 52-year-old obese gentleman with history of hypertension, hyperlipidemia, impaired fasting glucose, aortic aneurysm is here today for complete physical exam. Plan as following Hypertension uncontrolled due to noncompliance with medication and ran out of lisinopril and hydrochlorothiazide has not taken it for 3 weeks. He also has not done any lab work in the last 2 years. Discussed with patient about compliance with medication and regular follow-ups. blood pressure is 150/95. We have given him a refill for lisinopril and hydrochlorthiazide will follow up in 1 week and make sure he does not need further adjustment in his medication lab slip given for compressive metabolic panel and albumin creatinine ratio. Discussed with patient about cutting down on sodium intake and exercising and weight loss. EKG was completed today reviewed by me shows normal sinus rhythm with no acute ST changes QTC is 406 heart rate is 79 bpm, no bundle branch block Hyperlipidemia we will check a lipid profile. Dietary restriction was advised. possible undiagnosed sleep apnea, patient reports snoring at night. Will need a sleep study we will address this on her next visit Aortic aneurysm will need screening, follow-up, will order an echocardiogram to assess for LV function and aortic aneurysm sizing, he may need a CT chest and abdomen. Uncontrolled hypertension, discussed with patient about the effects of elevated blood pressure on aortic aneurysm. impaired fasting glucose last A1c 2 years ago was 6.0 we will check HbA1c Prostate screening will check a PSA Anxiety and depression PHQ 9 is 5 he sleeps well no acute issues, he takes Zoloft 50 mg and sertraline 25 mg daily he uses hydroxyzine 25 mg daily as needed not sure why he is taking the same medication from different brands but according to the patient he was given by his last PCP Obesity class I discussed about weight loss, dietary restriction, daily exercise, we will recheck in 3 months for further evaluation he may benefit from [facility] 11/07/2024 Aneurysm of aorta in diseases classified elsewhere (ICD-10 - I79.0) 52-year-old obese gentleman with history of hypertension, hyperlipidemia, impaired fasting glucose, aortic aneurysm is here today for complete physical exam. Plan as following Hypertension uncontrolled due to noncompliance with medication and ran out of lisinopril and hydrochlorothiazide has not taken it for 3 weeks. He also has not done any lab work in the last 2 years. Discussed with patient about compliance with medication and regular follow-ups. blood pressure is 150/95. We have given him a refill for lisinopril and hydrochlorthiazide will follow up in 1 week and make sure he does not need further adjustment in his medication lab slip given for compressive metabolic panel and albumin creatinine ratio. Discussed with patient about cutting down on sodium intake and exercising and weight loss. EKG was completed today reviewed by me shows normal sinus rhythm with no acute ST changes QTC is 406 heart rate is 79 bpm, no bundle branch block Hyperlipidemia we will check a lipid profile. Dietary restriction was advised. possible undiagnosed sleep apnea, patient reports snoring at night. Will need a sleep study we will address this on her next visit Aortic aneurysm will need screening, follow-up, will order an echocardiogram to assess for LV function and aortic aneurysm sizing, he may need a CT chest and abdomen. Uncontrolled hypertension, discussed with patient about the effects of elevated blood pressure on aortic aneurysm. impaired fasting glucose last A1c 2 years ago was 6.0 we will check HbA1c Prostate screening will check a PSA Anxiety and depression PHQ 9 is 5 he sleeps well no acute issues, he takes Zoloft 50 mg and sertraline 25 mg daily he uses hydroxyzine 25 mg daily as needed not sure why he is taking the same medication from different brands but according to the patient he was given by his last PCP Obesity class I discussed about weight loss, dietary restriction, daily exercise, we will recheck in 3 months for further evaluation he may benefit from Wewilliamvy 11/07/2024 Chronic obstructive pulmonary disease, unspecified COPD type (ICD-10 - J44.9) 52-year-old obese gentleman with history of hypertension, hyperlipidemia, impaired fasting glucose, aortic aneurysm is here today for complete physical exam. Plan as following Hypertension uncontrolled due to noncompliance with medication and ran out of lisinopril and hydrochlorothiazide has not taken it for 3 weeks. He also has not done any lab work in the last 2 years. Discussed with patient about compliance with medication and regular follow-ups. blood pressure is 150/95. We have given him a refill for lisinopril and hydrochlorthiazide will follow up in 1 week and make sure he does not need further adjustment in his medication lab slip given for compressive metabolic panel and albumin creatinine ratio. Discussed with patient about cutting down on sodium intake and exercising and weight loss. EKG was completed today reviewed by me shows normal sinus rhythm with no acute ST changes QTC is 406 heart rate is 79 bpm, no bundle branch block Hyperlipidemia we will check a lipid profile. Dietary restriction was advised. possible undiagnosed sleep apnea, patient reports snoring at night. Will need a sleep study we will address this on her next visit Aortic aneurysm will need screening, follow-up, will order an echocardiogram to assess for LV function and aortic aneurysm sizing, he may need a CT chest and abdomen. Uncontrolled hypertension, discussed with patient about the effects of elevated blood pressure on aortic aneurysm. impaired fasting glucose last A1c 2 years ago was 6.0 we will check HbA1c Prostate screening will check a PSA Anxiety and depression PHQ 9 is 5 he sleeps well no acute issues, he takes Zoloft 50 mg and sertraline 25 mg daily he uses hydroxyzine 25 mg daily as needed not sure why he is taking the same medication from different brands but according to the patient he was given by his last PCP Obesity class I discussed about weight loss, dietary restriction, daily exercise, we will recheck in 3 months for further evaluation he may benefit from Josephinevterrence 11/07/2024 Generalized anxiety disorder (ICD-10 - F41.1) 52-year-old obese gentleman with history of hypertension, hyperlipidemia, impaired fasting glucose, aortic aneurysm is here today for complete physical exam. Plan as following Hypertension uncontrolled due to noncompliance with medication and ran out of lisinopril and hydrochlorothiazide has not taken it for 3 weeks. He also has not done any lab work in the last 2 years. Discussed with patient about compliance with medication and regular follow-ups. blood pressure is 150/95. We have given him a refill for lisinopril and hydrochlorthiazide will follow up in 1 week and make sure he does not need further adjustment in his medication lab slip given for compressive metabolic panel and albumin creatinine ratio. Discussed with patient about cutting down on sodium intake and exercising and weight loss. EKG was completed today reviewed by me shows normal sinus rhythm with no acute ST changes QTC is 406 heart rate is 79 bpm, no bundle branch block Hyperlipidemia we will check a lipid profile. Dietary restriction was advised. possible undiagnosed sleep apnea, patient reports snoring at night. Will need a sleep study we will address this on her next visit Aortic aneurysm will need screening, follow-up, will order an echocardiogram to assess for LV function and aortic aneurysm sizing, he may need a CT chest and abdomen. Uncontrolled hypertension, discussed with patient about the effects of elevated blood pressure on aortic aneurysm. impaired fasting glucose last A1c 2 years ago was 6.0 we will check HbA1c Prostate screening will check a PSA Anxiety and depression PHQ 9 is 5 he sleeps well no acute issues, he takes Zoloft 50 mg and sertraline 25 mg daily he uses hydroxyzine 25 mg daily as needed not sure why he is taking the same medication from different brands but according to the patient he was given by his last PCP Obesity class I discussed about weight loss, dietary restriction, daily exercise, we will recheck in 3 months for further evaluation he may benefit from Josephinevy 11/07/2024 Hyperlipidemia, unspecified (ICD-10 - E78.5) 52-year-old obese gentleman with history of hypertension, hyperlipidemia, impaired fasting glucose, aortic aneurysm is here today for complete physical exam. Plan as following Hypertension uncontrolled due to noncompliance with medication and ran out of lisinopril and hydrochlorothiazide has not taken it for 3 weeks. He also has not done any lab work in the last 2 years. Discussed with patient about compliance with medication and regular follow-ups. blood pressure is 150/95. We have given him a refill for lisinopril and hydrochlorthiazide will follow up in 1 week and make sure he does not need further adjustment in his medication lab slip given for compressive metabolic panel and albumin creatinine ratio. Discussed with patient about cutting down on sodium intake and exercising and weight loss. EKG was completed today reviewed by me shows normal sinus rhythm with no acute ST changes QTC is 406 heart rate is 79 bpm, no bundle branch block Hyperlipidemia we will check a lipid profile. Dietary restriction was advised. possible undiagnosed sleep apnea, patient reports snoring at night. Will need a sleep study we will address this on her next visit Aortic aneurysm will need screening, follow-up, will order an echocardiogram to assess for LV function and aortic aneurysm sizing, he may need a CT chest and abdomen. Uncontrolled hypertension, discussed with patient about the effects of elevated blood pressure on aortic aneurysm. impaired fasting glucose last A1c 2 years ago was 6.0 we will check HbA1c Prostate screening will check a PSA Anxiety and depression PHQ 9 is 5 he sleeps well no acute issues, he takes Zoloft 50 mg and sertraline 25 mg daily he uses hydroxyzine 25 mg daily as needed not sure why he is taking the same medication from different brands but according to the patient he was given by his last PCP Obesity class I discussed about weight loss, dietary restriction, daily exercise, we will recheck in 3 months for further evaluation he may benefit from Lorene 11/07/2024 HTN (hypertension), benign (ICD-10 - I10) 52-year-old obese gentleman with history of hypertension, hyperlipidemia, impaired fasting glucose, aortic aneurysm is here today for complete physical exam. Plan as following Hypertension uncontrolled due to noncompliance with medication and ran out of lisinopril and hydrochlorothiazide has not taken it for 3 weeks. He also has not done any lab work in the last 2 years. Discussed with patient about compliance with medication and regular follow-ups. blood pressure is 150/95. We have given him a refill for lisinopril and hydrochlorthiazide will follow up in 1 week and make sure he does not need further adjustment in his medication lab slip given for compressive metabolic panel and albumin creatinine ratio. Discussed with patient about cutting down on sodium intake and exercising and weight loss. EKG was completed today reviewed by me shows normal sinus rhythm with no acute ST changes QTC is 406 heart rate is 79 bpm, no bundle branch block Hyperlipidemia we will check a lipid profile. Dietary restriction was advised. possible undiagnosed sleep apnea, patient reports snoring at night. Will need a sleep study we will address this on her next visit Aortic aneurysm will need screening, follow-up, will order an echocardiogram to assess for LV function and aortic aneurysm sizing, he may need a CT chest and abdomen. Uncontrolled hypertension, discussed with patient about the effects of elevated blood pressure on aortic aneurysm. impaired fasting glucose last A1c 2 years ago was 6.0 we will check HbA1c Prostate screening will check a PSA Anxiety and depression PHQ 9 is 5 he sleeps well no acute issues, he takes Zoloft 50 mg and sertraline 25 mg daily he uses hydroxyzine 25 mg daily as needed not sure why he is taking the same medication from different brands but according to the patient he was given by his last PCP Obesity class I discussed about weight loss, dietary restriction, daily exercise, we will recheck in 3 months for further evaluation he may benefit from Wegovy 11/07/2024 Benign prostatic hyperplasia without lower urinary tract symptoms (ICD-10 - N40.0) 52-year-old obese gentleman with history of hypertension, hyperlipidemia, impaired fasting glucose, aortic aneurysm is here today for complete physical exam. Plan as following Hypertension uncontrolled due to noncompliance with medication and ran out of lisinopril and hydrochlorothiazide has not taken it for 3 weeks. He also has not done any lab work in the last 2 years. Discussed with patient about compliance with medication and regular follow-ups. blood pressure is 150/95. We have given him a refill for lisinopril and hydrochlorthiazide will follow up in 1 week and make sure he does not need further adjustment in his medication lab slip given for compressive metabolic panel and albumin creatinine ratio. Discussed with patient about cutting down on sodium intake and exercising and weight loss. EKG was completed today reviewed by me shows normal sinus rhythm with no acute ST changes QTC is 406 heart rate is 79 bpm, no bundle branch block Hyperlipidemia we will check a lipid profile. Dietary restriction was advised. possible undiagnosed sleep apnea, patient reports snoring at night. Will need a sleep study we will address this on her next visit Aortic aneurysm will need screening, follow-up, will order an echocardiogram to assess for LV function and aortic aneurysm sizing, he may need a CT chest and abdomen. Uncontrolled hypertension, discussed with patient about the effects of elevated blood pressure on aortic aneurysm. impaired fasting glucose last A1c 2 years ago was 6.0 we will check HbA1c Prostate screening will check a PSA Anxiety and depression PHQ 9 is 5 he sleeps well no acute issues, he takes Zoloft 50 mg and sertraline 25 mg daily he uses hydroxyzine 25 mg daily as needed not sure why he is taking the same medication from different brands but according to the patient he was given by his last PCP Obesity class I discussed about weight loss, dietary restriction, daily exercise, we will recheck in 3 months for further evaluation he may benefit from [facility] Plan Of Treatment Pending Test Test Name Order Date Echocardiogram 11/07/2024 BASIC METABOLIC PANEL 07/27/2022 TESTOSTERONE, FREE AND TOTAL (MALES >15 YRS OLD) 07/27/2022 Lipid Panel-[id number] 11/15/2024 Future Test Test Name Order Date Hemoglobin [id number] 11/15/2024 Comp. Metabolic Panel [id number] 2024 Next Appt Details Provider Name:Francisca tenorio, 02/15/2025 03:30:00 PM, [address] [place] [address], [id number], Insurance Providers Payer Name Payer Address Payer Phone Subscriber Number Group Number Insured Name Patient Relationship to Insured Coverage Start Date Coverage End Date [facility] [address] [facility] [address] [place] [address] [id number] Patrick Lanza i Self - patient is the insured 2 Medical (General) History Medical History History ICD Code hypertension attention deficit disorder Male erectile dysfunction impaired fasting glucose mild emphysema 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
--- OUTSIDE RECORDS SUMMARY | 2025-01-10 16:17 | XMS_ITS ---
Author Organization [facility] Address [address] [facility] [address] [place] [address] Care Team Providers Care Racing Mechanic Name Role Phone NORAH HERRMANN Primary Care Provider REASON FOR VISIT Zoloft PA Encounters Encounter Location Date Provider Diagnosis [facility] [address] [facility] [address] [place] [address] 12/27/2024 NORAH HERRMANN Plan Of Treatment Next Appt Details Provider Name:Francisca tenorio, 02/15/2025 03:30:00 PM, [address] [facility] [address], [place], [address], Progress Notes * Patrick PRATTDOB: [birth year] (58 yo M)Acc No.[id number]:12/27/2024 Patient:?Patrick PRATT :1965???Age:58 Y???Sex:Male Address:[place] [address] * true * Date:? Generated for Noah mitchell/Gris/eTransmitting on:?01/10/2025 04:16 PM EDT
--- OUTSIDE RECORDS SUMMARY | 2025-01-10 16:17 | XMS_ITS ---
Author Organization [facility] Address [address] [address] Care Team Providers Care Crossbar Switch Adjuster Name Role Phone NORAH HERRMANN Primary Care Provider Francisca Glass Unavailable [phone] REASON FOR VISIT Erna BARNETT (pending) Encounters Encounter Location Date Provider Diagnosis [facility] [address] [facility] [address] [place] [address] 01/05/2025 Francisca Glass Plan Of Treatment Next Appt Details Provider Name:Francisca tenorio, 02/15/2025 03:30:00 PM, [address] [facility] [address], [place], [address], Progress Notes * Patrick PRATTDOB: [birth year] (59 yo M)Acc No.[id number]:01/05/2025 Patient:?Patrick PRATT :1965???Age:59 Y???Sex:Male Address:[address] [place] [address] * * Date:?
== END 2025-01-10 15:58 | disposition home or self-care (01) ==
LOC: HO.HPSW 15:15
PROVIDERS: Visit Provider Nurse Practitioner Family
DX: J44.9 Chronic obstructive pulmonary disease, unspecified (principal); Z87.891 Personal history of nicotine dependence
CPT/HCPCS: 99204

== ENCOUNTER → 2025-01-10 15:15 | Outpatient (BNVA) | payer OTHER, SELFPAY | PROVIDERS: Visit Provider Nurse Practitioner Family ==

== ENCOUNTER 2025-02-20 16:08 | Outpatient (REF) | payer OTHER, SELFPAY ==
--- NOTE | 2025-02-20 16:13 | PFT_ITS ---
Flows: FEV1: 89 % of predicted at 3.02 L FVC: 95 % of predicted at 4.13 L FEV1/FVC: 73 % Bronchodilator response: Present in small to medium airways only. Volumes: Total lung capacity: 91 % of predicted at 6.14 L Residual volume: 99 % of predicted at 2.01 L Slow vital capacity: 86 % of predicted at 4.13 L Expiratory reserve volume: 9 % of predicted at 0.11 L Diffusion capacity: Normal Impression: No obstructive or restrictive ventilatory defect. Bronchodilator response is present in small to medium airways only. Decreased expiratory reserve volume suggests extrathoracic restriction likely secondary to abdominal obesity. MTDD
[2025-02-20 17:07] VITALS: PULSE 80; O2SAT 98
--- OUTSIDE RECORDS SUMMARY | 2025-02-20 18:53 | XMS_ITS ---
Author Organization [facility] Address [address] [facility] [address] [place] [address] Care Team Providers Care Brick Veneer Maker Name Role Phone MONTEZNORAH Primary Care Provider [phone] REASON FOR VISIT CPE Medications Medication SIG (Take, Route, Frequency, Duration) Notes Start Date End Date Status Ventolin HFA 108 (90 Base) MCG/ACT 1 puff as needed Inhalation every 4 hrs for 30 days 04/08/2023 Active Albuterol Sulfate HFA 108 (90 Base) MCG/ACT 2 puff as needed Inhalation every 4 hrs for 30 days 09/22/2022 Active [facility] Fluticasone Propionate 50 MCG/ACT USE 1 SPRAY IN EACH NOSTRIL EVERY DAY for 30 Active Lisinopril-hydroCHLOROthi azide 20-25 MG TAKE 1 TABLET BY MOUTH EVERY DAY FOR 90 DAYS for 90 Active Zoloft 50 MG 1 tablet Orally Once a day for 30 days 10/22/2022 Active Ventolin HFA 108 (90 Base) MCG/ACT 2 puffs Inhalation every 4 hours as needed for 30 days 07/27/2022 Active Viagra 50 MG 1 tablet as needed Orally Once a day for 30 day(s) 07/10/2022 Active Sertraline HCl 25 MG TAKE 1 TABLET BY MO UTH EVERY DAY for 30 Active hydrOXYzine HCl 25 MG TAKE 1 TABLET BY M OUTH TWICE DAILY WITH 1 DOSE BEING AT BEDTIME NEEDED for 30 Active Lisinopril 10 MG TAKE 1 TABLET BY ALAYNA TH EVERY DAY for 90 Not-Taking Social History Tobacco Use: Social History Observation [...] ast year? No Points 0 Interpretation Negative Encounters Encounter Location Date Provider Diagnosis [facility] [address] [facility] [address] [facility] [place] [address] 11/03/2024 NORAH HERRMANN Plan Of Treatment No Information Progress Notes * YULIPatrick CAMPOSDOB: [birth year] (59 yo M)Acc No.[id number]:11/03/2024 Progress Notes Patient:?Patrick PRATT Provider:?NORAH HERRMANN MD :1965???Age:58 Y???Sex:Male Darrius e:11/03/2024 Address: [facility] Subjective: * Chief Complaints: * ???1. CPE. 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 * Surgical History:?vasectomy . * Family History:?Father: dece ased.?Mother: , diagnosed with Cancer.?Maternal Grand Father: diagnosed with Diabetes.? Family history heart disease Mom from lung cancer and heart disease father lung cancer, metastatic. * Social History:?Tobacco Use:?Tobacco Use/Smoking?Are you a?current smoker ?How often do you smoke cigarettes??every day ?How many cigarettes a day do you smoke??6-10 ???Drugs/Alcohol:?Drugs?Have you used drugs other than those for medical reasons in the past 12 months??No ?Alcohol Screen (Audit-C)?Did you have a drink containing alcohol in the past year??No ?Points?0 ?Interpretation?Negative * Medications:?Taking Ventolin HFA 108 (90 Base) MCG/ACT Aerosol Solution 2 puffs Inhalation every 4 hours as needed , Taking Zoloft 50 MG Tablet 1 tablet Orally Once a day , Taking Ventolin HFA 108 (90 Base) MCG/ACT Aerosol Solution 1 puff as needed Inhalation every 4 hrs , Taking Albuterol Sulfate HFA 108 (90 Base) MCG/ACT Aerosol Solution 2 puff as needed Inhalation every 4 hrs , Taking [facility] Fluticasone Propionate 50 MCG/ACT Suspension USE 1 SPRAY IN EACH NOSTRIL EVERY DAY , Taking Lisinopril-hydroCHLOROthiazide 20-25 MG Tablet TAKE 1 TABLET BY MOUTH EVERY DAY FOR 90 DAYS , Taking Viagra 50 MG Tablet 1 tablet as needed Orally Once a day , Taking Sertraline HCl 25 MG Tablet TAKE 1 TABLET BY MOUTH EVERY DAY , Taking hydrOXYzine HCl 25 MG Tablet TAKE 1 TABLET BY MOUTH TWICE DAILY WITH 1 DOSE BEING AT BEDTIME NEEDED , Not-Taking Lisinopril 10 MG Tablet TAKE 1 TABLET BY MOUTH EVERY DAY Objective: * Vitals:? Assessment: Plan: * Treatment: * Images: * Electronic signature of HERACLIO HERRMANN MD on 02/20/2025 at 06:53 PM EDT Sign off status: Pending * Provider:?NORAH HERRMANN MD Date:?11/03 Generated for Noah mitchell/rGis/Isa on:?02/20/2025 06:53 PM EDT
== END 2025-02-20 16:09 | disposition home or self-care (01) ==
LOC: HO.RESP 16:08
PROVIDERS: PCP Hospitalist; Visit Provider Nurse Practitioner Family
DX: J44.9 Chronic obstructive pulmonary disease, unspecified (principal)
CPT/HCPCS: 94010; 94640; 94727; 94729

== ENCOUNTER → 2025-02-20 16:13 | Outpatient (BNV) | payer OTHER, SELFPAY | PROVIDERS: PCP Hospitalist; Visit Provider Internal Medicine Pulmonary Disease | DX: J44.9 Chronic obstructive pulmonary disease, unspecified (principal) | CPT/HCPCS: 94060; 94727; 94729 ==

== ENCOUNTER 2025-02-26 16:11 | Outpatient (REF) | payer OTHER, SELFPAY ==
--- NOTE | ~2025-02-26 | CT_ITS ---
CLINICAL HISTORY: Z87.891 - Personal history of nicotine dependence Exam: CT chest without IV contrast Comparison: None Findings: No acute infiltrates, pleural effusion or pneumothorax. Patent central airway. No emphysema. Mild diffuse bronchial wall thickening is probably smoking related. Left lower lobe 3 mm nodule laterally on image 111. Heart size is normal. Mild atherosclerotic calcification of the aorta and coronary arteries. No pericardial effusion. No lymphadenopathy. Imaged lower neck, chest wall and upper abdomen are unremarkable. Right renal scar noted. Degenerative changes of the thoracic spine. Impression: 1. No acute finding. 2. Left lower lobe 3 mm pulmonary nodule. Recommend optional [address] follow-up given provided history of nicotine dependence. This document has been electronically signed by: Kayleigh Samuel MD on 02/27/2025 15:19:28
--- OUTSIDE RECORDS SUMMARY | 2025-02-26 17:50 | XMS_ITS ---
Author Organization [employer] [facility] Address [address] [facility] [address] [place] [address] Care Team Providers Care Patient Assessment Coordinator Name Role Phone MONTEZNORAH Primary Care Provider REASON FOR VISIT CPE Medications Medication SIG [...] Negative Encounters Encounter Location Date Provider Diagnosis [facility] [address] [facility] [address] [facility] [place] [address] 11/03/2024 NORAH HERRMANN Plan Of Treatment No Information Progress Notes * YULIPatrick CAMPOSDOB: [birth year] (59 yo M)Acc No.[id number]:11/03/2024 Progress Notes Patient:?Patrick PRATT Provider:?NORAH HERRMANN MD :1965???Age:58 Y???Sex:Male Darrius e:11/03/2024 Address: [facility] Subjective: * Chief Complaints: * [...] Electronic signature of HERACLIO HERRMANN MD on 02/26/2025 at 05:49 PM EDT Sign off status: Pending * Provider:?NORAH HERRMANN MD Date:?11/03 Generated for Noah mitchell/Gris/Isa on:?02/26/2025 05:49 PM EDT
== END 2025-02-26 16:12 | disposition home or self-care (01) ==
LOC: HO.CT 16:11
PROVIDERS: PCP Hospitalist; Visit Provider Nurse Practitioner Family
DX: Z87.891 Personal history of nicotine dependence (principal)
CPT/HCPCS: 71250

== ENCOUNTER → 2025-02-26 16:12 | Outpatient (BNV) | payer OTHER, SELFPAY | PROVIDERS: PCP Hospitalist; Visit Provider Radiology Diagnostic Radiology | DX: R91.1 Solitary pulmonary nodule (principal) | CPT/HCPCS: 71250 ==